=== PATIENT | male | born 1995 | race Hispanic/Latino ===

== ENCOUNTER 2017-01-19 02:31 | Emergency (ER) | payer MEDICAID, OTHER ==
[2017-01-19 02:49] VITALS: BP 124/77; PULSE 97; RESP 18; TEMP 98; O2SAT 98
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
== END 2017-01-19 03:15 | disposition home or self-care (01) ==
LOC: H.ER 02:31
DX: M79.603 Pain in arm, unspecified (principal); V43.52XA Car driver injured in collision with other type car in traffic accident, initial encounter; Y92.410 Unspecified street and highway as the place of occurrence of the external cause

== ENCOUNTER 2018-01-15 19:19 | Emergency (ER) | payer OTHER ==
[2018-01-15 19:39] VITALS: BP 118/67; PULSE 68; RESP 17; TEMP 98.7; O2SAT 100
--- NOTE | 2018-01-15 19:49 | ED PDOC ---
HPI: General Adult Time Seen by Provider: 01/15/18 19:42 Chief Complaint (Nursing): Rib Injury Chief Complaint (Provider): rib pain History Per: Patient History/Exam Limitations: no limitations Onset/Duration Of Symptoms: Persistent (x1 week) Current Symptoms Are (Timing): Still Present Additional Complaint(s): 22 year old male presents to the emergency department with complaints of right- sided rib pain status post injury while playing volleyball a week ago. Patient states breathing is painful on inspiration. He denies taking any medication for relief. PMD: does not recall name Past Medical History Reviewed: Historical Data, Nursing Documentation, Vital Signs Vital Signs: Last Vital Signs Temp 98.7 F 01/15/18 19:37 Pulse 68 01/15/18 19:37 Resp 17 01/15/18 19:37 BP 118/67 01/15/18 19:37 Pulse Ox 100 01/15/18 20:19 - Medical History PMH: Asthma (mild) - Surgical History Surgical History: No Surg Hx - Family History Family History: States: No Known Family Hx - Living Arrangements Living Arrangements: With Friends/Others - Social History Current smoker - smoking cessation education provided: No Alcohol: Social Drugs: Denies - Home Medications Home Medications: Ambulatory Orders Medication Instructions Recorded Escitalopram [Lexapro] 5 mg PO DAILY #30 tab 04/09/16 Ibuprofen [Motrin Tab] 800 mg PO Q8 PRN #20 tab 01/15/18 - Allergies Allergies/Adverse Reactions: Allergies Allergy/AdvReac Type Severity Reaction Status Date / Time pollen extracts Allergy RASH Verified 04/05/16 20:28 Review of Systems ROS Statement: Except As Marked, All Systems Reviewed And Found Negative Cardiovascular: Positive for: Other (right-sided rib pain) Respiratory: Negative for: Cough Gastrointestinal: Negative for: Nausea, Vomiting Physical Exam - Reviewed Nursing Documentation Reviewed: Yes Vital Signs Reviewed: Yes - Physical Exam Appears: Positive for: Well, Non-toxic, No Acute Distress Skin: Positive for: Normal Color. Negative for: Rash Eye Exam: Positive for: Normal appearance Cardiovascular/Chest: Positive for: Regular Rate, Rhythm, Other (diffuse tenderness to right lateral chest wall and along right costal region) Respiratory: Positive for: Normal Breath Sounds. Negative for: Wheezing, Respiratory Distress Gastrointestinal/Abdominal: Positive for: Soft. Negative for: Tenderness, Distended, Guarding Back: Positive for: R CVA Tenderness Extremity: Positive for: Normal ROM Neurologic/Psych: Positive for: Alert (x3), Oriented - ECG O2 Sat by Pulse Oximetry: 100 (RA) Pulse Ox Interpretation: Normal - Other Rad CXR with right rib series X-Ray: Interpreted by Me, Viewed By Me X-Ray Interpretation: no acute finding Medical Decision Making Medical Decision Making: Initial Impression: 22 year old with right side rib injury Initial Plan: * Xray ribs and chest * Motrin 600mg PO * Incentive spirometer Patient is aware of x-ray results, all questions answered. Patient given incentive spirometer. He was advised to rest and avoid heavy lifting. Prescription for Motrin provided. Patient was instructed to follow-up with primary doctor or clinic. Scribe Attestation: Documented by Sri Delgado, acting as a scribe for Binta Velasquez PA-C. Provider Scribe Attestation: All medical record entries made by the Scribe were at my direction and personally dictated by me. I have reviewed the chart and agree that the record accurately reflects my personal performance of the history, physical exam, medical decision making, and the department course for this patient. I have also personally directed, reviewed, and agree with the discharge instructions and disposition. Disposition - Clinical Impression Clinical Impression: Rib contusion - Patient ED Disposition Is Patient to be Admitted: No Counseled Patient/Family Regarding: Studies Performed, Diagnosis, Need For Followup, Rx Given - Disposition Referrals: [facility] [Outside] Disposition: Routine/Home Disposition Time: 21:43 Condition: STABLE Additional Instructions: Ice and rest affected area. Take prescription meds as directed as needed for pain. Use incentive spirometer as often as possible. Follow-up with primary doctor in 2-3 days. Prescriptions: Ibuprofen [Motrin Tab] 800 mg PO Q8 PRN #20 tab PRN Reason: Pain, Moderate (4-7) Instructions: Bruised Rib (DC), How to Use an Incentive Spirometer Forms: [employer] (Polish), [facility] ED School/Work Excuse
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
== END 2018-01-15 20:58 | disposition home or self-care (01) ==
LOC: H.ER 19:19
DX: S20.219A Contusion of unspecified front wall of thorax, initial encounter (principal); W22.8XXA Striking against or struck by other objects, initial encounter; Y93.68 Activity, volleyball (beach) (court)